=== PATIENT | male | born 1960 | race African-American/Black ===

== ENCOUNTER 2018-07-06 10:28 | Emergency (ER) | payer MEDICARE, MEDICAID ==
[~2018-07-06] VITALS: Ht 177.8 cm; Wt 86.2 kg
--- NOTE | 2018-07-06 10:33 | NUR ---
ED Nurse Note: PT BROUGHT IN BY R68 FROM [facility] DUE TO ALOC. PER EMS, FACILITY STATES STAFF WAS UNABLE TO WAKE UP PT THIS AM. AT BEDSIDE, PT WAS AROUSABLE TO VOICE AND IS RESPONDING APPROPRIATELY TO QUESTIONS. PT AOX3 - ORIENTED TO SELF, PLACE, AND TIME. PT UNAWARE OF SITUATION OR WHY HE WAS SENT TO ER BY FACILITY. VSS.
[2018-07-06 10:37] VITALS: BP 104/76
--- NOTE | 2018-07-06 11:29 | Emergency Room Report ---
History of Present Illness General Chief Complaint: Altered Level of Consciousness Source: Patient, Medical Record Present Illness HPI 58-year-old male with a history of generalized weakness, COPD, paranoid schizophrenia, extrapyramidal and movement disorder, hypertension, chronic incarcerated R inguinal hernia, sent from [facility] because they're unable to wake him from his sleep this morning. Patient is now awake and has no complaints. He is sleepy but easily arousable to verbal stimulus. He denies any complaints at all and is alert and oriented to person place and time, just not sure why he was sent here. Allergies: Coded Allergies: No Known Allergies (Unverified , 07/06/18) Patient History Past Medical History: see triage record Reviewed Nursing Documentation: PMH: Agreed; PSxH: Agreed Nursing Documentation-PMH Past Medical History: No History, Except For Hx Hypertension: Yes - Muscle Weakness Hx COPD: Yes Hx Gastrointestinal Problems: Yes - GERD History Of Psychiatric Problem: Yes - Schizo Review of Systems All Other Systems: negative except mentioned in HPI Physical Exam Vital Signs Date Time Temp Pulse Resp B/P (MAP) Pulse Ox O2 Delivery O2 Flow Rate FiO2 07/06/18 10:19 93 16 119/74 99 Room Air 07/06/18 10:37 99.1 Sp02 EP Interpretation: reviewed, normal General Appearance: no apparent distress, alert, non-toxic Head: normocephalic Eyes: bilateral eye normal inspection, bilateral eye PERRL, bilateral eye EOMI ENT: normal ENT inspection, hearing grossly normal, normal pharynx, no angioedema, normal voice, moist mucus membranes Neck: normal inspection, full range of motion, supple, thyroid normal, no meningismus, supple/symm/no masses Respiratory: chest non-tender, lungs clear, normal breath sounds, no rhonchi, no respiratory distress, no retraction, no accessory muscle use, no wheezing, chest symmetrical, palpation of chest normal Cardiovascular #1: normal peripheral pulses, regular rate, rhythm, no edema, no gallop, no JVD, no murmur, no rub Cardiovascular #2: 2+ radial (R), 2+ radial (L) Gastrointestinal: normal inspection, non tender, soft, no guarding, no rebound Rectal: deferred Genitourinary: no CVA tenderness, other - R scrotum enlarged with nontender mass c/w hernia Musculoskeletal: back normal, non-tender, no calf tenderness Neurologic: alert, responsive, trim stencil maker III-XII nml as tested, motor strength/tone normal - chronic leg weakness but able to move, sensory intact, speech normal Psychiatric: judgement/insight normal, memory normal, mood/affect normal Skin: normal color, no rash, warm/dry, normal turgor Lymphatic: no adenopathy Medical Decision Making Diagnostic Impression: Primary Impression: Intermittent drowsiness Additional Impression: UTI (urinary tract infection) ER Course Patient well-appearing here, no complaints, review of meds reveal patient on Cogentin, thiothixene, so suspect he may have just been slightly sedated from the meds. UA with UTI but labs normal, do not suspect sepsis, will give rx for cipro and Will discharge. Last Vital Signs Date Time Temp Pulse Resp B/P (MAP) Pulse Ox O2 Delivery O2 Flow Rate FiO2 07/06/18 10:37 91 15 Room Air 07/06/18 10:37 99.1 104/76 96 Disposition: HOME, SELF-CARE Condition: Stable Referrals: KRISTIE LOPEZ (PCP) IVANIA CHAVARRIA M.D Jul 06, 2018 11:29
[2018-07-06 12:20] LABS: EOSINOPHILS % (AUTO) 1.5 % (0.0-3.0); HEMATOCRIT 34.8 % (42.0-52.0); HEMOGLOBIN 11.1 G/DL (14.2-18.0); LYMPHOCYTES % (AUTO) 14.7 % (20.0-45.0); MEAN CORPUSCULAR VOLUME 96 FL (80-99); MONOCYTES % (AUTO) 9.2 % (1.0-10.0); NEUTROPHILS % (AUTO) 73.6 % (45.0-75.0); PLATELET COUNT 197 K/UL (150-450); RED BLOOD COUNT 3.63 M/UL (4.70-6.10); WHITE BLOOD COUNT 9.6 K/UL (4.8-10.8)
[2018-07-06 12:24] LABS: BILIRUBIN, URINE NEGATIVE (NEGATIVE); GLUCOSE, URINE (UA) NEGATIVE (NEGATIVE); KETONES,URINE NEGATIVE (NEGATIVE); LEUKOCYTE ESTERASE ,URINE 2+ (NEGATIVE); NITRITE,URINE POSITIVE (NEGATIVE); PH,URINE 5 (4.5-8.0); PROTEIN,URINE 1+ (NEGATIVE); UROBILINOGEN,URINE NORMAL MG/DL (0.0-1.0)
[2018-07-06 12:26] LABS: APPEARANCE,URINE SLIGHTLY CLOUDY; COLOR,URINE YELLOW
[2018-07-06 12:40] LABS: ANION GAP 8 mmol/L (5-15); BLOOD UREA NITROGEN 5 mg/dL (7-18); CALCIUM 8.8 MG/DL (8.5-10.1); CARBON DIOXIDE 26 MMOL/L (21-32); CHLORIDE 103 MMOL/L (98-107); CREATININE 0.8 MG/DL (0.55-1.30); POTASSIUM 3.7 MMOL/L (3.5-5.1); SODIUM 137 MMOL/L (136-145)
[2018-07-06 12:44] LABS: ALANINE AMINOTRANSFERASE 48 U/L (12-78); ALBUMIN 2.8 G/DL (3.4-5.0); ALBUMIN/GLOBULIN RATIO 0.7 (1.0-2.7); ALKALINE PHOSPHATASE 74 U/L (46-116); ASPARTATE AMINO TRANSFERASE 26 U/L (15-37); BILIRUBIN,TOTAL 0.4 MG/DL (0.2-1.0)
[2018-07-06 13:13] VITALS: BP 127/73
[2018-07-06] MEDS ORDERED: CIPROFLOXACIN500 M2 ORAL (13:53)
--- NOTE | 2018-07-06 14:28 | NUR ---
ED Nurse Note: LINELINE AT BEDSIDE. REPORT GIVEN TO EMS. [facility] CALLED. REPORT AND DISCHARGE INSTRUCTIONS GIVEN TO KELLY CARVAJAL WHO STATES FACILITY IS READY TO ACCEPT PT. PT TAKEN BACK TO FACILITY VIA AMBULANCE WITH ALL BELONGINGS ACCOMPANIED BY EMS. EMS GIVEN DISCHARGE PAPERWORK AND PRESCRIPTIONS FOR PT.
[2018-07-06 14:29] VITALS: BP 125/80
== END 2018-07-06 14:30 | disposition home or self-care (01) ==
LOC: EDBD 10:28 → EMR 11:01
DX: R40.0 Somnolence (principal); N39.0 Urinary tract infection, site not specified; J44.9 Chronic obstructive pulmonary disease, unspecified; F20.0 Paranoid schizophrenia; K21.9 Gastro-esophageal reflux disease without esophagitis
CPT/HCPCS: 36415; 80053; 81001; 85025; 99284